=== PATIENT | female | born 1960 | race African-American/Black ===

== ENCOUNTER 2023-01-25 09:51 | Emergency (ER) | payer OTHER ==
[2023-01-25 10:01] VITALS: BP 138/76; PULSE 96; RESP 18; TEMP 97; BMI 27.9
[2023-01-25 10:49] LABS: EPI CELLS >36 /uL (0-25.1); HYALINE CASTS 3 /uL (0-3.1); URINE APPEARANCE CLOUDY; URINE BACTERIA 419 /uL (0-1359); URINE BILIRUBIN NEGATIVE (NEGATIVE); URINE COLOR YELLOW; URINE GLUCOSE (UA) NEGATIVE (NEGATIVE); URINE KETONE TRACE (NEGATIVE); URINE LEUK ESTERASE 3+ (NEGATIVE); URINE NITRITE NEGATIVE (NEGATIVE); URINE PROTEIN 1+ (NEGATIVE); URINE WBC 236 /uL (0-25.8)
[2023-01-25 11:23] LABS: URINE RBC 37.3 /uL (0-23.9); YEAST NO SEEN (NEGATIVE)
== END 2023-01-25 11:00 | disposition home or self-care (01) ==
LOC: JER 09:51 → JERFT 09:51
DX: B37.31 Acute candidiasis of vulva and vagina (principal)
CPT/HCPCS: 81003; 87086; 87106; 99283-25